=== PATIENT | male | born 1975 | race African-American/Black ===

== ENCOUNTER → 2019-06-15 | Outpatient (CLI) | payer OTHER ==
[~2019-06-15] MED LIST: CYCL10TA45; HYDROCODONE; IMITREX; NAPROXEN; ZLP10T
== END ==
LOC: ORTHO 08:31
PROVIDERS: ATTEND Orthopaedic Surgery
DX: M17.0 Bilateral primary osteoarthritis of knee (principal); M23.200 Derangement of unspecified lateral meniscus due to old tear or injury, right knee
CPT/HCPCS: 99204

== ENCOUNTER 2020-05-25 09:10 | Outpatient (RCR) | payer OTHER ==
[2020-05-25 10:47] LABS: SEMEN VOLUME 3.5 ML (1.5-5.0)
== END 2020-08-23 | disposition home or self-care (01) ==
LOC: LAB 09:10 → EDSTATUS 09:20
PROVIDERS: ATTEND Urology
DX: N46.9 Male infertility, unspecified (principal)
CPT/HCPCS: 89320

== ENCOUNTER 2022-08-01 06:19 | Outpatient (CLI) | payer OTHER ==
[~2022-08-01] VITALS: Ht 188 cm; Wt 109.3 kg
== END 2022-08-01 16:53 | disposition home or self-care (01) ==
LOC: PREOP 06:19
PROVIDERS: ATTEND Surgery
DX: Z01.818 Encounter for other preprocedural examination (principal)

== ENCOUNTER 2022-08-14 07:01 | Day surgery (SDC) | payer OTHER ==
[~2022-08-14] VITALS: Ht 188 cm; Wt 109.3 kg
[2022-08-14] MEDS ORDERED: LACTATED RINGERS 1,000 ML IV STA (07:13)
[2022-08-14] MEDS ORDERED: HURRICAINE EXT TUBE (BENZOCAINE) XX PRN (07:15)
[2022-08-14] MEDS ORDERED: PROPOFOL INJECTION 50 ML IV ONE ×2 (07:19→08:42)
[2022-08-14 07:25] VITALS: BP 138/97
--- NOTE | 2022-08-14 08:15 | Progress Note-Pre Operative ---
Pre-Operative Progress Note Date of Available H&P: Jul 25, 2022 Date H&P Reviewed: Aug 14, 2022 Time H&P Reviewed: 08:05 History & Physical: H&P Reviewed, Patient Examed, No changes noted Pre-Operative Diagnosis: altered bowel functin, gerd JONNA COX DO Aug 14, 2022 08:15
[2022-08-14] MEDS ORDERED: GLYCOPYRROLATE 0.2 MG/ML (ROBINUL) 2 ML VIAL ONE (08:48)
--- NOTE | 2022-08-14 09:02 | Anesthesia-General Post-Op ---
MAC Patient Condition Mental Status/LOC: Same as Preop Cardiovascular: Satisfactory Nausea/Vomiting: Absent Respiratory: Satisfactory Pain: Controlled Complications: Absent Post Op Complications Complications None Follow Up Care/Instructions Patient Instructions None needed. Anesthesiology Discharge Order Discharge Order Patient is doing well, no complaints, stable vital signs, no apparent adverse anesthesia problems. No complications reported per nursing. FUENTES PINA CRNA Aug 14, 2022 09:02
--- NOTE | 2022-08-14 09:05 | Progress Note-Post Operative ---
Post-Operative Progess Note Surgeon (s)/Diamond Powder Mixer (s) Surgeon JONNA COX DO [employer] Powder Mixer: na Pre-Operative Diagnosis altered bowel functin, gerd Post-Operative Diagnosis duodenitis, gastritis, reflux esophagitis, ileal ulcerations Procedure & Operative Findings Date of Procedure 08/14/22 Procedure Performed/Findings egd c biopsies, colonoscopy c cold biopsies of ileum and cecum, hot biopsy polypectomy rectal polyp. Anesthesia Type per auxiliary operator Estimated Blood Loss Estimated blood loss (mL): none Specimens/Packing Specimens Removed antrum, body, ge, ileal ulcer, cecum, ascending colon, rectal polyp JONNA COX DO Aug 14, 2022 09:05
[2022-08-14] MEDS ORDERED: PANT40TA2 PO (09:06)
[2022-08-14 09:09] VITALS: BP 111/68
--- NOTE | 2022-08-14 09:12 | Discharge Inst-Simple/Standard ---
Discharge Inst-Standard Patient Instructions/Follow Up Plan of Care/Instructions/FU: 2 weeks Wayne Activity as Tolerated: Yes Discharge Diet: Regular Diet JONNA COX DO Aug 14, 2022 09:12
[2022-08-14 09:15] VITALS: BP 111/68
[2022-08-14 09:30] VITALS: BP 111/68
--- NOTE | 2022-08-14 11:55 | OPERATIVE REPORT ---
DATE OF SERVICE: 08/14/2022 PREOPERATIVE DIAGNOSES: Altered bowel function and gastroesophageal reflux disease. POSTOPERATIVE DIAGNOSES: Duodenitis, gastritis, reflux esophagitis, ileal ulcerations, rectal polyp, cecal inflammation. PROCEDURE: EGD with biopsies, colonoscopy with cold biopsy of the ileum and cecum and hot biopsy polypectomy of rectal polyp and also cold biopsies of the ascending colon. SURGEON: Jonna Black DO ANESTHESIA: Per POLITICAL ANALYST. ESTIMATED BLOOD LOSS: None. COMPLICATIONS: None. SPECIMENS: Antrum, body, GE junction ileocecal ulcer, cecum, ascending colon and rectal polyp. INDICATIONS: The patient is a 46-year-old male with altered bowel function and GERD symptoms. He understands risks and benefits of procedure and wishes to proceed. Consent was signed in the chart. DESCRIPTION OF PROCEDURE: The patient was taken to the endoscopy suite, placed in left lateral recumbent position. Timeout was performed. Scope was inserted in mouth, down the esophagus, stomach and into the duodenum without difficulty. No polyps, masses or ulcerations in the second portion of the duodenum. First portion of duodenum had some inflammation changes present. Scope was then continuously retracted back. Biopsy of the antrum was obtained where there was present. Biopsy of the body of the stomach was also obtained. Scope was retroflexed noting no other pathology. Scope was returned to its normal position, slowly withdrawn to distal esophagus, changes of reflux esophagitis present. Biopsy of GE junction was obtained. Scope was slowly retracted back to completely remove noting no other pathology. Digital rectal exam was performed. No palpable polyps, masses or ulcerations. Scope was inserted in the rectum and advanced all the way to cecum with minimal difficulty. Prep was adequate. The ileocecal valve was intubated. The ileum had appearance of some inflammation, ulcerations. Biopsy of the ulceration was obtained. Scope was slowly retracted back to the cecum, which had some inflammatory changes present as well. Biopsy of the cecum was obtained. Scope was then slowly retracted back and in the ascending colon, there was an area of some inflammation as well, which biopsy was obtained. Scope was slowly retracted back. No polyps, masses or ulcerations within the remainder of the ascending, transverse, descending and sigmoid colon. Once in the rectum, a small polyp was present, which hot biopsy polypectomy was performed. Scope was retroflexed noting no other pathology. Scope was returned to its normal position, slowly withdrawn until completely removed. The patient tolerated procedure well without any complications, taken to recovery room in stable condition. RECOMMENDATIONS: The patient was started on Protonix 40 mg daily. We will await biopsy results, suspect possible Crohn's. Further recommendations pending biopsy results. The patient will need repeat colonoscopy in 5 years due to history of polyps. Job ID: [id number] DocumentID: [id number] Dictated Date: 08/14/2022 09:08:59 Science Professor Date: 08/14/2022 11:54:40 Dictated By: JONNA BLACK DO
== END 2022-08-14 09:30 | disposition home or self-care (01) ==
LOC: ENDO 07:01
PROVIDERS: ATTEND Surgery
DX: K29.80 Duodenitis without bleeding (principal); K29.50 Unspecified chronic gastritis without bleeding; K21.00 Gastro-esophageal reflux disease with esophagitis, without bleeding; K62.1 Rectal polyp; K52.9 Noninfective gastroenteritis and colitis, unspecified; K63.3 Ulcer of intestine; G47.33 Obstructive sleep apnea (adult) (pediatric); E66.9 Obesity, unspecified; Z68.30 Body mass index [BMI] 30.0-30.9, adult; F17.290 Nicotine dependence, other tobacco product, uncomplicated; Z79.899 Other long term (current) drug therapy; Z28.310 Unvaccinated for COVID-19

== ENCOUNTER → 2022-09-25 | Outpatient (CLI) | payer OTHER ==
[~2022-09-25] MED LIST changes: +PANT40TA2 PO
== END ==
LOC: WOUNDCARE 13:20
PROVIDERS: ATTEND Family Medicine
DX: L02.91 Cutaneous abscess, unspecified (principal); N17.9 Acute kidney failure, unspecified; D50.9 Iron deficiency anemia, unspecified; E66.01 Morbid (severe) obesity due to excess calories
CPT/HCPCS: 99212